=== PATIENT | female | born 1985 | race Caucasian/White ===

== ENCOUNTER 2017-01-13 07:48 | Inpatient (IN) | payer OTHER ==
[~2017-01-13] VITALS: Ht 162.6 cm; Wt 98.9 kg
[2017-01-13] VITALS (7 sets, daily range): BP systolic 111–144; BP diastolic 60–82
--- NOTE | 2017-01-13 21:32 | NUR ---
Has slept this shift except to eat and transfer to room 323. Had her read and sign Family Partership Contract and Health Care Partership and Behavior Agreement. Given YU medications with instructions and Admit ingor pack with paternity papers.
--- NOTE | 2017-01-13 21:37 | NUR ---
Patient sleeping most of the shift. Awake to eat and transfer to room 323. Given Family Partership Contract and Health Care Partersip and Behavior Agreement to read and sign. Givem YU medications with instructions. Admit OB Packet with patermity information given.
[2017-01-14 01:00] VITALS: BP 97/52
[2017-01-14 08:29] VITALS: BP 116/79
--- NOTE | 2017-01-14 08:37 | NUR ---
Discussed with patient the contact with CPS and that they would be in touch with us. Pt is aware her baby will have to stay in house for a minimum of 96 hours. They live close, so patient would like to be discharged and come in to visit baby at her leisure. She is aware of symptoms to watch for to assist us in assessing baby. Her vag flow is a little heavier than expected this am, so will reassess in 2 hours. Fundus is at umbilicus, but firm to massage.
[2017-01-14] MEDS ORDERED: CEPHALEXIN500 MG PO (10:29)
[2017-01-14] MEDS ORDERED: ACETAMINOPHEN325 MG PO (10:30)
[2017-01-14] MEDS ORDERED: IBUPROFEN200 M1 PO (10:30)
--- NOTE | 2017-01-14 10:31 | Provider's Discharge Care Plan ---
Problem, Goal, Plan Problem List 1. UTI (urinary tract infection) Goals: Therapeutic intervention Instructions: Follow up as directed, Take meds as directed 2. (normal spontaneous vaginal delivery) Goals: Therapeutic intervention Instructions: Follow up as directed, Take meds as directed
--- NOTE | 2017-01-14 11:13 | NUR ---
Pt has small scleral hemorrhages in both eyes this am. She said they were not there prior to delivery. She is bleeding moderately today, though fundus is at or slightly below umbilicus and firm to touch. Pt is having some cramping with this, for which she is using her tylenol. She appears diaphoretic, and restless. She was anxious for discharge, and had to be convinced to remain long enough to receive another dose of antibiotics and her discharge instructions. She was instructed to go to her pharmacy at the local [facility] to obtain her filled prescription for keflex, and to return to the hospital in the morning for a repeat blood draw. She declined to remain as a patient, claiming she wanted to go home to shower. She stated she was supposed to go into rehab tomorrow at the [facility]. If this does not work out for her, she was instructed to call and contact the hospital or Dr Tuttle or her physician group for further assistance in getting into a rehab of some sort, or a methadone clinic. She was advised that she will probably be contacted by CPS at some point regarding the baby. She states she will be back to see the baby and visit in the nursery. Discharge instructions reviewed with patient though she was anxious to leave, and highlights were stressed rather than in depth teaching. Pt stated she has had a baby previously, and at this time had no questions. [place], and has adequate help. Discharged to home alone, escorted out by an FT.
--- NOTE | 2017-01-15 08:53 | DISCHARGE SUMMARY ---
ADMIT DATE: 01/13/2017 DISCHARGE DATE: 01/14/2017 ADMISSION DIAGNOSES: 1. Active labor; this is a 31-year-old , currently at term 2. Group B streptococcus unknown 3. Minimal care 4. Multisubstance abuse 5. Questionable urinary tract infection DISCHARGE DIAGNOSES: 1. A 31-year-old G5, now P2, delivering at term a male 2. Multisubstance abuse 3. Questionable urinary tract infection BRIEF HISTORY: This is a 31-year-old presenting in active labor at term after minimal care, GBS is unknown. The patient progressed to complete and delivered a male . Infant had spontaneous cry on the perineum, with resuscitation with skin stimulation and bulb suction. Delayed cord clamping was completed and active management of the placenta was done. The cord labs were sent. Placenta delivered intact. A small repair was performed as per the note. HOSPITAL COURSE: The patient was monitored closely . Her vitals were all stable. She was tolerating the antibiotic well. The patient did have continued leukocytosis, thought to be secondary to a possible urinary tract infection versus acute phase response. We advised the patient that it would be safer for her to remain in the hospital, pending another 24 hours, pending the results of her urine culture and for further monitoring. The patient demanded to be discharged and agreed to return to the hospital in 24 hours for a repeat CBC. She also agreed to take the antibiotics and was notified of the importance of these antibiotics, including the potential for severe illness, including sepsis and potential if she did not take the antibiotics or got more ill and did not return to the emergency room. She understood the risks and continued to demand discharge. PHYSICAL EXAMINATION: At the time of discharge, vital signs stable. This is a healthy-appearing female, lying in bed, somnolent, in no apparent distress. Lungs are clear to auscultation. Heart, S1, S2, regular rate and rhythm. No S3, S4, murmurs, gallops, or rubs. Abdomen is soft, nontender, nondistended, without hepatosplenomegaly or masses. Bowel sounds are active. U -2. There is no peripheral edema. DISCHARGE INSTRUCTIONS/MEDICATIONS: The patient was discharged to home with instructions to follow up with her primary care provider within a week and in 6 weeks. Diet: Regular. Activity: Up ad. césar. Nothing in vagina for 6 weeks. Medications: Ibuprofen 400 mg p.o. q.4 hours p.r.n. severe pain. Tylenol 325 mg p.o. q.4 hours p.r.n. severe pain. Keflex 500 mg p.o. t.i.d. x10 days.
== END 2017-01-14 11:00 | disposition home or self-care (01) | DRG 560 ==
LOC: OBC SRH 07:48 → OB SRH 08:16
PROVIDERS: ADMIT Family Medicine
PROC: 10E0XZZ Delivery of Products of Conception, External Approach (ICD-10-PCS; principal; 2017-01-13)
PROC: 0HQ9XZZ Repair Perineum Skin, External Approach (ICD-10-PCS; principal; 2017-01-13)
DX: O70.0 First degree perineal laceration during delivery (principal); Z37.0 Single live birth; O99.324 Drug use complicating childbirth; F11.10 Opioid abuse, uncomplicated; F15.10 Other stimulant abuse, uncomplicated; O75.3 Other infection during labor; N39.0 Urinary tract infection, site not specified; O99.334 Smoking (tobacco) complicating childbirth; F17.210 Nicotine dependence, cigarettes, uncomplicated; Z3A.39 39 weeks gestation of pregnancy
CPT/HCPCS: 40011; 84043; 90004; 90074; 90100; 90185; 90469; 92331; 92680; 92760; 92761; 92762; 92763; 92764; 92765; 92766; 92767; 92860; 94060; 95059